=== PATIENT | female | born 1955 | race Caucasian/White ===

== ENCOUNTER 2017-10-24 17:00 | Emergency (ER) | payer BC ==
[~2017-10-24] VITALS: Ht 170.2 cm; Wt 80.9 kg
[~2017-10-24 17:00] MED LIST: Aspirin E.C. PO; CRESTOR10 MG PO; CRESTOR20 MG PO; IRON18 MG PO; LANSOPRAZOLE30 MG PO; LEVOTHYROXINE100 MCG PO; LO-DOSE ASPIRIN81 M1 PO; PREVACID30 MG PO; RANITIDINE HCL300 MG PO; SYNTHROID75 MCG PO; VITAMIN B12-FO1 EACH PO; VITAMIN D2000 UNIT PO
[2017-10-24 19:34] LABS: CHLORIDE 107 mEq/L (99-109); POTASSIUM 3.8 mEq/L (3.7-5.4); PTT 28.4 SEC (25-37); SODIUM 141 mEq/L (136-147)
[2017-10-24 19:36] LABS: GLUCOSE 96 mg/dL (70-99)
[2017-10-24 19:40] LABS: CREATININE 0.7 mg/dL (0.6-1.3); GFR ESTIMATE (CALCULATED) > 59 mL/min/
[2017-10-24 19:41] LABS: UREA NITROGEN (BUN) 15 mg/dL (9-23)
[2017-10-24 19:45] LABS: HEMATOCRIT 38.7 % (36.0-46.0); MCH 19.1 PG (29.0-34.0); MCHC 28.4 G/DL (30.0-36.0); MCV 67.2 FL (83-99); PLATELET COUNT 332 K/uL (156-360); RBC DIS.WIDTH-CV 19.7 % (11.8-14.6); RED BLOOD COUNT 5.76 M/uL (3.80-5.20); WHITE BLOOD COUNT 8.6 K/uL (4.1-10.2)
[2017-10-24 19:46] LABS: TROP-I INTERPRETATION NEGATIVE; TROPONIN-I < 0.01 ng/mL (0.0-0.30)
[2017-10-24] MEDS ORDERED: XARELTO1 EACH PO (21:54)
[2017-10-24 22:36] LABS: TROP-I INTERPRETATION NEGATIVE; TROPONIN-I 0.02 ng/mL (0.0-0.30)
[2017-10-24 22:50] VITALS: BP 137/73
== END 2017-10-24 23:01 | disposition home or self-care (01) ==
LOC: EME 17:00 → RME 17:00
PROVIDERS: Physician Assistant Medical
DX: I82.4Z2 Acute embolism and thrombosis of unspecified deep veins of left distal lower extremity (principal); D45 Polycythemia vera; K80.20 Calculus of gallbladder without cholecystitis without obstruction; Z79.82 Long term (current) use of aspirin; Z87.891 Personal history of nicotine dependence; Z87.81 Personal history of (healed) traumatic fracture; Z88.0 Allergy status to penicillin; Z88.1 Allergy status to other antibiotic agents; Z88.5 Allergy status to narcotic agent
CPT/HCPCS: 71275; 80048; 84484; 85027; 85610; 85730; 93005; 93971; 99281; 99284; J7030